=== PATIENT | female | born 1945 | race Caucasian/White ===

== ENCOUNTER → 2016-09-10 | Outpatient (CLI) | payer OTHER | LOC: MOB LAB 09:06 | PROVIDERS: ATTEND Physician Assistant Medical | DX: J06.9 Acute upper respiratory infection, unspecified (principal); J02.9 Acute pharyngitis, unspecified; Z87.891 Personal history of nicotine dependence | CPT/HCPCS: 99213; G0463 ==

== ENCOUNTER → 2016-11-25 | Outpatient (CLI) | payer OTHER ==
--- NOTE | 2016-11-25 10:27 | EKG ---
[address] [address] Measurements Intervals [place] Rate: 58 P: 72 ID: [id number] QRS: 50 QRSD: 89 T: 62 QT: 422 QTc: 418 Interpretive Statements SINUS RHYTHM POSSIBLE RIGHT VENTRICULAR CONDUCTION DELAY [RSR (QR) IN V1/V2] No previous ECG available for comparison Electronically Signed On 11-30-16 10:21:17 MDT by Viraj Langford MD [email or web address]
[2016-11-25 10:35] LABS: BASOPHILS # (AUTO) 0.07 10*3/UL; BASOPHILS % (AUTO) 1.4 % (0-1); EOSINOPHILS # (AUTO) 0.17 10*3/UL; EOSINOPHILS % (AUTO) 3.3 % (0-8); HEMATOCRIT 42.5 % (37.0-47.0); HEMOGLOBIN 13.8 g/dL (12.0-16.0); LYMPHOCYTES # (AUTO) 1.22 10*3/uL; MEAN CORPUSCULAR HEMOGLOBIN 29.4 PG (27-31); MEAN CORPUSCULAR HGB CONC 32.5 g/dL (33-37); MEAN CORPUSCULAR VOLUME 90.6 FL (81-99); MEAN PLATELET VOLUME 10.7 FL (7.4-12.2); MONOCYTES # (AUTO) 0.58 10*3/UL (0.3-0.8); MONOCYTES % (AUTO) 11.3 % (5-15); NEUTROPHILS % (AUTO) 60.1 % (50-80); RED BLOOD COUNT 4.69 10^6/uL (4.20-5.40)
[2016-11-25 10:36] LABS: PLATELET MORPHOLOGY COMMENT NORMAL MORPHOLOGY (NORM); RBC MORPHOLOGY COMMENT NORMAL MORPHOLOGY (NORM); WBC MORPHOLOGY COMMENT NORMAL MORPHOLOGY (NORM)
[2016-11-25 10:44] LABS: BLOOD UREA NITROGEN 19 mg/dL (7-22); BUN/CREATININE RATIO 21.11 (6-20); CALCIUM 9.4 mg/dL (8.7-10.7); EST GLOMERULAR FILTRATION > 60 (>60 ml/min/1.73m(2)); SERUM ALBUMIN 4.4 g/dL (3.5-4.8)
== END ==
LOC: MOB EKG 10:07 → EKG 10:07
PROVIDERS: ATTEND Physician Assistant
DX: H81.10 Benign paroxysmal vertigo, unspecified ear (principal); H61.21 Impacted cerumen, right ear; I45.89 Other specified conduction disorders
CPT/HCPCS: 36415; 69209 ×2; 80053; 81002; 84439; 84443; 85025; 93005; 93010; 99214; G0463

== ENCOUNTER → 2016-12-03 | Outpatient (CLI) | payer OTHER | LOC: MMPC 09:00 | PROVIDERS: ATTEND Nurse Practitioner Family | DX: R42 Dizziness and giddiness (principal) | CPT/HCPCS: 99213; G0463 ==

== ENCOUNTER → 2017-03-02 | Outpatient (CLI) | payer OTHER ==
--- NOTE | 2017-03-02 15:44 | DI ---
MRI LOW EXTREMITY JNT W/O CN,03/02/2017 10:53 AM: Clinical History: Left lateral ankle pain. Previous Exam: June 27, 2014 Findings: Multiplanar MR images are obtained through the left ankle without contrast. Bony alignment is anatomic. No fractures are seen. Marrow signal is preserved. The tarsometatarsal joints are unremarkable. There is a small cyst noted within the neck of the talar this. The Achilles tendon is unremarkable. Signal within the musculature is also unremarkable. The extensor tendons and musculature is unremarkable. The surrounding subcutaneous fat is unremarkable. The major vascular flow voids are unremarkable. The peroneal tendons are unremarkable. The anterior and posterior talofibular ligaments are unremarkable. There is some very mild edema involving the distal left fibula. There is some ossified fragments involving the deltoid ligamentous complex. There is no evidence of a talar dome injury. Signal within the musculature is unremarkable. Impression: Very mild increased marrow edema involving the distal fibula. This may represent a contusion.
== END ==
LOC: MRI 10:46
PROVIDERS: ATTEND Orthopaedic Surgery
DX: M76.72 Peroneal tendinitis, left leg (principal)
CPT/HCPCS: 73721